=== PATIENT | male | born 1960 | race Caucasian/White ===

== ENCOUNTER → 2017-07-14 | Outpatient (CLI) | payer BC ==
--- NOTE | 2017-07-14 09:23 | Diagnostic Imaging Report ---
TECHNIQUE: Magnetic resonance imaging of the LEFT KNEE was performed WITHOUT injected contrast. HISTORY: Knee pain COMPARISON: None available. FINDINGS: LIGAMENTS AND TENDONS: ACL: Intact PCL: Intact Collateral ligaments: Intact Iliotibial band: Unremarkable Popliteal tendon: Intact Extensor mechanism: Intact JOINT: Menisci: Medial: Complex tearing of the body and posterior horn with extrusion. Lateral: Intact Articular Cartilage: Medial Compartment: Diffuse high-grade cartilage loss with areas of full-thickness erosion. Lateral Compartment: Diffuse partial thickness cartilage loss Patellofemoral Compartment: Diffuse cartilage loss with areas of full thickness erosion of the lateral patellar facet. Joint Fluid: Moderate joint effusion with synovitis. BONE: Mild subchondral edema in the medial compartment. No acute fracture. SOFT TISSUES: Otherwise, unremarkable. IMPRESSION: Medial meniscus complex tear body and posterior horn with extrusion. Medial tibiofemoral cartilage loss with areas of full-thickness erosion and subchondral edema. Signed by: Dr. Geovanni Carvajal M.D. on 07/14/2017 9:20 AM
== END ==
LOC: MRI 07:41
PROVIDERS: ATTEND Specialist
DX: S83.242A Other tear of medial meniscus, current injury, left knee, initial encounter (principal)